=== PATIENT | male | born 1990 | race Two or more races ===

== ENCOUNTER 2024-06-29 06:22 | Emergency (ER) | payer BC, OTHER ==
[~2024-06-29] VITALS: Ht 177.8 cm; Wt 84.0 kg
[2024-06-29 06:24] VITALS: O2SAT 97
[2024-06-29] MEDS: LEVETIRACETAM 500MG/5ML CUP PO ONE (06:45)
[2024-06-29 09:01] VITALS: BP 115/72; PULSE 75; RESP 14; TEMP 36.61404; O2SAT 97
== END 2024-06-29 09:03 | disposition home or self-care (01) ==
LOC: ER 06:22
DX: G40.901 Epilepsy, unspecified, not intractable, with status epilepticus (principal); J96.10 Chronic respiratory failure, unspecified whether with hypoxia or hypercapnia
CPT/HCPCS: 99283

== ENCOUNTER 2024-07-08 05:44 | Inpatient (IN) | payer BC, MEDICAID ==
[~2024-07-08] VITALS: Ht 330.2 cm; Wt 84.4 kg
[2024-07-08 06:43] LABS: BASOPHILS % 0.7 % (0.0-2.0); DIFFERENTIAL COMMENT 0; EOSINOPHILS % 2.4 % (0.0-5.0); HEMATOCRIT. 40.4 % (42.0-52.0); HEMOGLOBIN. 12.7 g/dL (14.0-18.0); LYMPHOCYTES % 28.2 % (20.0-50.0); MEAN CORPUSCULAR HEMOGLOBIN 24.6 pg (28.0-32.0); MEAN CORPUSCULAR HGB CONC 31.5 g/dL (31.0-37.0); MEAN CORPUSCULAR VOLUME 78.2 fL (80.0-94.0); MEAN PLATELET VOLUME 10.3 fl (7.4-10.4); MONOCYTES % 9.5 % (2.0-8.0); NEUTROPHILS % 59.2 % (40.0-76.0); PLATELET 199 x1000/uL (130-400); RED BLOOD CELL COUNT 5.17 mill/uL (4.7-6.1); RED CELL DISTRIBUTION WIDTH 19.2 % (11.6-14.6)
[2024-07-08 06:52] LABS: CHLORIDE 102 mEq/L (98-107); POTASSIUM 4.4 mEq/L (3.5-5.1); SODIUM 140 mEq/L (136-145)
[2024-07-08 06:53] LABS: CALCIUM 9.7 mg/dL (8.7-10.4); CARBON DIOXIDE 33 mEq/L (21-32)
[2024-07-08 06:58] LABS: GLUCOSE 96 mg/dL (70-105); UREA NITROGEN BLOOD 15 mg/dL (9-23)
[2024-07-08 07:39] LABS: ETHANOL BLOOD < 10 mg/dL (<10)
[2024-07-08] MEDS: LEVETIRACETAM 500MG PREMIX 100 ML IV ONE (09:53)
[2024-07-08] MEDS ORDERED: LACO50TA6 GT (11:28)
[2024-07-08] MEDS ORDERED: KEPPSOL GT (11:28)
[2024-07-08] MEDS ORDERED: MAGNESIUM/ALUMINUM HYDROXIDE/SIMETHICONE 30ML UDC PO PRN (11:30)
[2024-07-08] MEDS ORDERED: CLONIDINE 0.1MG TABLET PO PRN (11:30)
[2024-07-08] MEDS ORDERED: ACETAMINOPHEN 650MG/20.3ML UDC GT PRN (11:30)
[2024-07-08] MEDS ORDERED: ONDANSETRON HCL 4MG/2ML INJ IV PRN (11:30)
[2024-07-08] MEDS ORDERED: DOCUSATE SODIUM 100MG CAPSULE PEG PRN (11:30)
[2024-07-08] MEDS ORDERED: LACOSAMIDE GT SCH (11:45)
[2024-07-08] MEDS ORDERED: LORAZEPAM 2MG/ML INJ IV PRN (11:45)
[2024-07-08] MEDS ORDERED: LACOSAMIDE 100MG/10ML ORAL SOLN PO SCH ×2 (12:00)
[2024-07-08] MEDS: LEVETIRACETAM 500MG/5ML CUP GT SCH (12:57)
[2024-07-08] MEDS: LACOSAMIDE 100MG/10ML ORAL SOLN GT SCH ×2 (12:58→23:20)
[2024-07-08 13:00] LABS: CREATINE KINASE 71 IU/L (46-171)
[2024-07-08 20:00] VITALS: BP_SYST 104; BP_SYST 119; BP_DIAS 52; BP_DIAS 84; PULSE 78; PULSE 80; RESP 18; TEMP 36.72516; TEMP 36.8072; O2SAT 98
[2024-07-08] MEDS: ACETAMINOPHEN 650MG/20.3ML UDC GT PRN (23:19)
[2024-07-08] MEDS: GUAIFENESIN 200MG/10ML SUGAR FREE UDC PEG PRN (23:19)
[2024-07-09] VITALS (8 sets, daily range): BP systolic 89–113; BP diastolic 43–65; PULSE 70–88; RESP 18–19; TEMP 30.0024–36.6696; O2SAT 92–100
[2024-07-09] MEDS: IPRATROPIUM/ALBUTEROL 0.5-3(2.5)MG/3ML NEB HHN PRN (05:06)
[2024-07-09 07:16] LABS: BASOPHILS % 0.6 % (0.0-2.0); DIFFERENTIAL COMMENT 0; EOSINOPHILS % 0.9 % (0.0-5.0); HEMATOCRIT. 37.6 % (42.0-52.0); HEMOGLOBIN. 11.8 g/dL (14.0-18.0); MEAN CORPUSCULAR HEMOGLOBIN 24.5 pg (28.0-32.0); MEAN CORPUSCULAR HGB CONC 31.4 g/dL (31.0-37.0); MEAN CORPUSCULAR VOLUME 77.9 fL (80.0-94.0); MEAN PLATELET VOLUME 10.8 fl (7.4-10.4); MONOCYTES % 7.7 % (2.0-8.0); NEUTROPHILS % 64.8 % (40.0-76.0); PLATELET 187 x1000/uL (130-400); RED BLOOD CELL COUNT 4.84 mill/uL (4.7-6.1); RED CELL DISTRIBUTION WIDTH 19.2 % (11.6-14.6); WHITE BLOOD COUNT 6.5 x1000/uL (4.5-11.0)
[2024-07-09 07:25] LABS: CARBON DIOXIDE 31 mEq/L (21-32); CHLORIDE 103 mEq/L (98-107); SODIUM 140 mEq/L (136-145)
[2024-07-09 07:26] LABS: CALCIUM 9.8 mg/dL (8.7-10.4)
[2024-07-09 07:31] LABS: CREATININE 0.9 mg/dL (0.6-1.3); GLUCOSE 72 mg/dL (70-105); TRIGLYCERIDE 89 mg/dL (0-150); UREA NITROGEN BLOOD 12 mg/dL (9-23)
[2024-07-09 07:32] LABS: LDL CHOLESTEROL 78 mg/dL (5-100)
[2024-07-09 07:33] LABS: CHOLESTEROL 130 mg/dL (<200); HDL CHOLESTEROL 37 mg/dL (>55)
[2024-07-09 07:34] LABS: THYROID STIMULATING HORMONE 1.64 uIU/mL (0.55-4.78)
[2024-07-09 14:31] LABS: IRON 26 ug/dL (65-175)
[2024-07-09 14:34] LABS: TOTAL IRON BINDING CAPACITY 270 ug/dl (250-425)
[2024-07-09 14:38] LABS: FERRITIN 76 ng/mL (22-322); FOLIC ACID (FOLATE) SERUM 11.92 ng/mL (>5.38); VITAMIN B12 SERUM 754 pg/mL (211-911)
== END 2024-07-09 22:34 | disposition home or self-care (01) | DRG 101 ==
LOC: ER 05:44 → 5WST 10:10 → EDBEDREQ 10:11 → EDBEDREQTM 10:11 → 5WST 14:30 → 7EST 18:55
PROVIDERS: ADMIT Internal Medicine; ATTEND Internal Medicine
DX: G40.409 Other generalized epilepsy and epileptic syndromes, not intractable, without status epilepticus (principal); Z16.24 Resistance to multiple antibiotics; H53.2 Diplopia; Z93.0 Tracheostomy status; Z79.899 Other long term (current) drug therapy
CPT/HCPCS: 36415; 80048; 80061; 80320; 80339; 82542; 82550; 82607; 82728; 82746; 83540; 83550; 83605; 84443; 85025; 93970; 94640; 99291; J1953; G0480